=== PATIENT | female | born 1940 | race Caucasian/White ===

== ENCOUNTER 2020-01-08 15:22 | Outpatient (CLI) | payer MEDICARE, SELFPAY ==
--- NOTE | 2020-01-08 15:34 | XR_ITS ---
WS: [id number] SCREENING DEXA SCAN [facility] CLINICAL INFORMATION: POST MENOPAUSAL OSTEOPORSIS COMPARISON: None. FINDINGS: The L1-L4 bone mineral density measures 1.147 g/cm2. This corresponds to a T score score of -0.3 and Z score of 1.2. Left femoral neck bone mineral density measures 0.845 g/cm2. This corresponds to a T score of -1.3 an d Z score of 0.5. Right femoral neck bone mineral density measures 0.820 g/cm2. This corresponds to a T score -1.5of an d Z score of 0.3. Mean femoral neck bone mineral density measures 0.832 g/cm2. This corresponds to a T score of -1.4 an d Z score of 0.4. XR/XR DEXA axial skeleton* [id number] IMPRESSION: Osteopenia in the femoral necks. Patient's FRAX calculated 10 year probability for major osteoporotic fracture is 17.9 % and osteoporotic hip fracture is 5.9% .
== END 2020-01-08 15:23 | disposition home or self-care (01) ==
LOC: RADWPI 15:26
PROVIDERS: Family Provider Family Medicine; PCP Family Medicine; Visit Provider Nurse Practitioner Family
DX: M81.0 Age-related osteoporosis without current pathological fracture (principal); M85.89 Other specified disorders of bone density and structure, multiple sites
CPT/HCPCS: 77080

== ENCOUNTER → 2022-01-14 09:59 | Outpatient (BNVA) | payer MEDICARE, SELFPAY | PROVIDERS: Family Provider Family Medicine; PCP Family Medicine; Visit Provider Internal Medicine Cardiovascular Disease | DX: R00.0 Tachycardia, unspecified (principal); I10 Essential (primary) hypertension; E78.00 Pure hypercholesterolemia, unspecified | CPT/HCPCS: 99213 ==

== ENCOUNTER 2022-02-18 08:30 | Outpatient (CLI) | payer MEDICARE, SELFPAY ==
--- NOTE | 2022-02-18 08:30 | US_ITS ---
WS: [id number] Gallbladder and right upper quadrant ultrasound, 02/18/2022 Clinical Data: vomitting/ r/o gb disease Comparison: None. Findings: The gallbladder shows no sludge or stone. The wall measures 0.2 cm with no pericholecystic fluid. The common bile duct is 0.3 cm and there are no intrahepatic ductal abnormalities. Liver shows no cysts, masses or dilated intrahepatic ducts. The liver shows normal echotexture with n ormal portal venous flow. The pancreas is not obscured by overlying bowel gas and no cyst, pseudocyst, or evidence of pancreati tis is noted. Right kidney measures 9.6 cm and no cyst, masses or hydronephrosis can be seen. The aorta and inferior vena cava show no vascular abnormalities. US/US gall bladder [id number] Impression: Negative gallbladder and right upper quadrant ultrasound.
== END 2022-02-18 08:31 | disposition home or self-care (01) ==
LOC: RAD 08:30
PROVIDERS: PCP Family Medicine; Visit Provider Family Medicine
DX: R10.9 Unspecified abdominal pain (principal)
CPT/HCPCS: 76705

== ENCOUNTER → 2022-04-07 09:05 | Outpatient (BNVA) | payer MEDICARE, SELFPAY | PROVIDERS: PCP Family Medicine; Visit Provider Family Medicine | DX: Z00.00 Encounter for general adult medical examination without abnormal findings (principal); I10 Essential (primary) hypertension; E78.00 Pure hypercholesterolemia, unspecified; E03.9 Hypothyroidism, unspecified | CPT/HCPCS: 80053; 80061; 84443 ==

== ENCOUNTER 2022-04-12 07:45 | Outpatient (CLI) | payer MEDICARE, SELFPAY ==
--- NOTE | 2022-04-12 08:00 | NM_ITS ---
WS: [id number] NUCLEAR MEDICINE HIDA SCAN CLINICAL INFORMATION: Possible gallbladder disease, rule out with HIDA scan TECHNIQUE: Following intravenous administration of 5.1 mCi of technetium 99m mebrofenin, images of th e abdomen were obtained over the course of 60 minutes. Next, gallbladder ejection fraction was determ ined by obtaining preprandial and one-hour postprandial images of the gallbladder following oral leon stion of Ensure. COMPARISON: Ultrasound February 18, 2022 FINDINGS: Normal hepatic uptake at 5 minutes. Normal common bile duct and small bowel activity. Gallbladder is visualized by 10 minutes. No evidence of acute cholecystitis. Decreased gallbladder ejection fraction 29% compatible with gallbladder dysfunction and is suspicious for chronic cholecystitis. NM/NM hepatobiliary w phar* [id number] IMPRESSION: Decreased gallbladder ejection fraction 29% compatible with gallbladder dysfunc tion and suspicious for chronic cholecystitis.
== END 2022-04-12 07:46 | disposition home or self-care (01) ==
LOC: RAD 07:46
PROVIDERS: PCP Family Medicine; Visit Provider Family Medicine
DX: R10.9 Unspecified abdominal pain (principal)
CPT/HCPCS: 78227; A9537

== ENCOUNTER → 2022-05-06 09:39 | Outpatient (BNVA) | payer MEDICARE, SELFPAY | PROVIDERS: PCP Family Medicine; Visit Provider Surgery | DX: K82.8 Other specified diseases of gallbladder (principal) | CPT/HCPCS: 99203 ==

== ENCOUNTER 2022-06-09 08:37 | Day surgery (SDC) | payer MEDICARE, SELFPAY ==
[2022-06-08 14:02] VITALS: BMI 28.3
[2022-06-09] VITALS (9 sets, daily range): BP systolic 101–159; BP diastolic 52–78; PULSE 61–70; RESP 13–18; TEMP 36.6; O2SAT 94–98
[2022-06-09] MEDS: sodium chloride 0.9% 1,000 ML 30 ML IV (09:26)
[2022-06-09] MEDS: diphenhydrAMINE 50 mg/mL SDV 1mL 12.5 MG IVP (09:54)
[2022-06-09] MEDS: ondansetron 2 mg/ML SDV 2 mL 4 MG IVP (09:56)
[2022-06-09] MEDS: scopolamine 1.5 Patch 1 PATCH TRANSDERMA (10:01)
--- NOTE | 2022-06-09 10:14 | P.HP_ITS ---
Providers/Chief Complaint Primary Care Provider: Noble Rodríguez MD Chief Complaint: other specified disease of gallbladder History of Present Illness Digna Escalante is a 82 year old female here for laparoscopic cholecystectomy Medications/Allergies Home Medications Medication Instructions Recorded Confirmed Last Taken Type amlodipine 5 mg tablet 5 mg PO DAILY 12/09/19 06/08/22 06/08/22 History ascorbic acid (vitamin C) 1,000 mg 1,000 mg PO DAILY 12/09/19 06/08/22 06/08/22 History tablet carvedilol 12.5 mg tablet 12.5 mg PO BID 12/09/19 06/08/22 06/09/22 History hydrochlorothiazide 25 mg tablet 12.5 mg PO DAILY 12/09/19 06/08/22 06/08/22 History spironolactone 25 mg tablet 25 mg PO DAILY 12/09/19 06/08/22 06/08/22 History cholecalciferol (vitamin D3) 125 125 mcg PO DAILY 12/18/21 06/08/22 06/08/22 History mcg (5,000 unit) capsule multivitamin 1 tab PO DAILY 12/18/21 06/08/22 06/08/22 History Lactobacillus rhamnosus GG 20 20 cell PO DAILY 01/14/22 06/08/22 06/08/22 History billion cell capsule (Probiotic Digestive Care) tumeric 320 mg PO DAILY 01/14/22 06/08/22 06/08/22 History zyflamend 1 pill PO BID 01/14/22 06/08/22 06/08/22 History levothyroxine 125 mcg tablet 125 mcg PO DAILY #30 tabs 02/25/22 06/08/22 06/09/22 Rx (Euthyrox) Allergies Allergy/AdvReac Type Severity Reaction Status Date / Time lisinopril Allergy Mild Cough Verified 06/08/22 13:52 PFSH Acute PFSH: Medical History HTN (hypertension) Hypercholesterolemia Hypothyroid Osteoporosis Tachycardia Surgical History H/O section Hx of colonoscopy [address] Benitez S/P hysterectomy S/P thyroid surgery Family History Mother Myocardial infarction CAD (coronary artery disease) Diabetes Social History Smoking and tobacco status: never smoked Vitals/I&O/Wt Last Vital Signs Temp 97.8 F 06/09/22 09:02 Pulse 70 06/09/22 09:02 Resp 18 06/09/22 09:02 BP 159/78 06/09/22 09:02 Pulse Ox 94 06/09/22 09:02 O2 Del Method 06/09/22 09:06 Weight last 48 hrs Weight 160 lb Weight 160 lb A&P Assessment and plan (1) Biliary dyskinesia: Plan Laparoscopic cholecystectomy Attestations Medical Necessity Statement*: Home Coding Level of Care Code Acute Maintenance And Engineering Manager for g Fwd Diagnoses Biliary dyskinesia K82.8
--- NOTE | 2022-06-09 10:19 | ANES.PREANE2 ---
Pre-Anesthetic Assessment Height/Weight: Height 1.6 m Weight 72.575 kg Temp Pulse Resp BP Pulse Ox O2 Del Method 97.8 F 70 18 159/78 94 06/09/22 09:02 06/09/22 09:02 06/09/22 09:02 06/09/22 09:02 06/09/22 09:02 06/09/22 09:06 Preop Diagnosis: Biliary Dyskinesia Operation Date: 06/09/22 10:15 Proposed Procedures p Laparoscopic Cholecystectomy 72359,K82.8(Not Applicable) - Brendan Trotter DO Familial anesthetic complications: none Was Beta Brodie taken within 24 hours: Yes Was Clonidine taken within 24 hours: N/A Last intake: Intake Last Liquid Date 06/08/22 Last Liquid Time 21:00 Last Solid Date 06/08/22 Last Solid Time 18:00 Social No alcohol and No tobacco Exam alert, oriented x 3, clear to auscultation bilaterally and regular rate & rhythm Airway Submandibular: within normal limits Cervical ROM: within normal limits Mallampati: Class II Dentition: full CV/HEM Arrythmia and Hypertension Metabolic Thyroid Disease Anesthetic Plan ASA status: 2 Anesthesia: General Other: h/o PONV Medications/Allergies Home Medications Medication Instructions Recorded Confirmed Last Taken Type amlodipine 5 mg tablet 5 mg PO DAILY 12/09/19 06/08/22 06/08/22 History ascorbic acid (vitamin C) 1,000 mg 1,000 mg PO DAILY 12/09/19 06/08/22 06/08/22 History tablet carvedilol 12.5 mg tablet 12.5 mg PO BID 12/09/19 06/08/22 06/09/22 History hydrochlorothiazide 25 mg tablet 12.5 mg PO DAILY 12/09/19 06/08/22 06/08/22 History spironolactone 25 mg tablet 25 mg PO DAILY 12/09/19 06/08/22 06/08/22 History cholecalciferol (vitamin D3) 125 125 mcg PO DAILY 12/18/21 06/08/22 06/08/22 History mcg (5,000 unit) capsule multivitamin 1 tab PO DAILY 12/18/21 06/08/22 06/08/22 History Lactobacillus rhamnosus GG 20 20 cell PO DAILY 01/14/22 06/08/22 06/08/22 History billion cell capsule (Probiotic Digestive Care) tumeric 320 mg PO DAILY 01/14/22 06/08/22 06/08/22 History zyflamend 1 pill PO BID 01/14/22 06/08/22 06/08/22 History levothyroxine 125 mcg tablet 125 mcg PO DAILY #30 tabs 02/25/22 06/08/22 06/09/22 Rx (Euthyrox) Allergies Allergy/AdvReac Type Severity Reaction Status Date / Time lisinopril Allergy Mild Cough Verified 06/08/22 13:52 Current Medications Generic Name Dose Route Start Last Admin Trade Name Freq PRN Reason Stop Dose Admin Diphenhydramine HCl 12.5 mg 06/09/22 08:42 06/09/22 09:54 Diphenhydramine 50 Mg/Ml Sdv 1ml IVP 12.5 mg ONCE PRN Administration PONV Sodium Chloride 1,000 mls @ 30 mls/hr 06/09/22 08:45 06/09/22 09:26 Sodium Chloride 0.9% IV 06/10/22 08:44 30 mls/hr .Q24H MARY Administration Ondansetron HCl 4 mg 06/09/22 08:42 06/09/22 09:56 Ondansetron 2 Mg/Ml Sdv 2 Ml IVP 4 mg ONCE PRN Administration NAUSEA AND VOMITING PFSH Anesthesia Medical History HTN (hypertension) Hypercholesterolemia Hypothyroid Osteoporosis Tachycardia Surgical History H/O section Hx of colonoscopy [address] Benitez S/P hysterectomy S/P thyroid surgery Family History Mother Myocardial infarction CAD (coronary artery disease) Diabetes Social History Smoking and tobacco status: never smoked Data Anesthesia Cardiac Studies: No Data to Display
[2022-06-09] MEDS: ceFAZolin 2,000 MG in sodium chloride 0.9% (plus) 50 ML 100 MG IV (10:50)
--- NOTE | 2022-06-09 11:32 | P.OP_ITS ---
Operative Report Date of procedure: June 09, 2022 Pre-op diagnosis: Preop Diagnosis Biliary Dyskinesia Post-op diagnosis: same Procedure done: Laparoscopic cholecystectomy Specimens removed/disposition: Gallbladder Surgeon: Dr. Brendan Trotter DO Anesthesia: General Estimated blood loss (mL): 5 Complications: None apparent Brief History: This is a pleasant 82-year-old female who was diagnosed with biliary dyskinesia. Laparoscopic cholecystectomy was indicated. The risks and benefits were explained and documented. Procedure: Patient was wheeled into the operative room and placed on the OR table in a supine position. Abdomen was inspected prepped and draped in usual sterile fashion. Time-out was performed and all present were in agreement. A 15 blade scalp was used to make a stab incision in the left upper quadrant and intra- abdominal insufflation was achieved using a Veress needle. After localizing the tissue incisions were made and a 5 millimeter trocar was placed into the umbilicus as well as 2 in the right upper quadrant. A 12 millimeter trocar was placed in the epigastrium. Gallbladder was grasped and elevated. The triangle of Calot was carefully dissected using blunt dissection and electrocautery until the triangle of Calot clearly identified. The cystic duct was clipped proximally and double clipped distally. The duct was then ligated proximally. T he cystic artery was doubly clipped and ligated. The gallbladder was then removed from the liver bed using electrocautery. The gallbladder was removed from the abdomen using an Endo-Catch bag through the epigastric incision. The liver bed was inspected and no bleeding was seen. There was no blood or bile loss. All ports removed. Skin was washed and dried. Incisions were closed with 4-0 Monocryl in a subcuticular interrupted fashion. Skin glue was applied. Patient tolerated the procedure well.
--- NOTE | 2022-06-09 15:09 | ANE.PACU2 ---
Inpatient post-anesthesia follow up: Airway intact: Yes Vital signs: Temperature 97.8 F Pulse Rate 62 Respiratory Rate 18 Blood Pressure 112/68 Pulse Oximetry 96 Oxygen Delivery Me thod Room Air Oxygen Flow Rate 6 Fraction of Inspir ed Oxygen Hydration adequate: Yes Nausea and vomiting: No Pain level: 3 Mental status: Baseline
== END 2022-06-09 12:55 | disposition home or self-care (01) ==
PROVIDERS: PCP Family Medicine; Visit Provider Surgery
PROC: 0FT44ZZ Resection of Gallbladder, Percutaneous Endoscopic Approach (ICD-10-PCS; CPT 47562; principal; 2022-06-09 10:05)
DX: K82.8 Other specified diseases of gallbladder (principal); I10 Essential (primary) hypertension; E78.00 Pure hypercholesterolemia, unspecified; E03.9 Hypothyroidism, unspecified; M81.0 Age-related osteoporosis without current pathological fracture
CPT/HCPCS: 47562; 88304; J0690; J1100; J1200; J2405; J2704; J2710; J3010; J3490; J7030

== ENCOUNTER → 2022-06-22 13:44 | Outpatient (BNVA) | payer MEDICARE, SELFPAY | PROVIDERS: PCP Family Medicine; Visit Provider Surgery | DX: Z98.890 Other specified postprocedural states (principal); Z90.49 Acquired absence of other specified parts of digestive tract | CPT/HCPCS: 99024 ==

== ENCOUNTER → 2023-01-16 10:52 | Outpatient (BNVA) | payer MEDICARE, SELFPAY | PROVIDERS: PCP Family Medicine; Visit Provider Internal Medicine Cardiovascular Disease | DX: R00.0 Tachycardia, unspecified (principal); I10 Essential (primary) hypertension; E78.00 Pure hypercholesterolemia, unspecified | CPT/HCPCS: 99214 ==

== ENCOUNTER → 2023-04-13 08:43 | Outpatient (BNVA) | payer MEDICARE, SELFPAY | PROVIDERS: PCP Family Medicine; Visit Provider Family Medicine | DX: E03.9 Hypothyroidism, unspecified (principal); E78.00 Pure hypercholesterolemia, unspecified; I10 Essential (primary) hypertension | CPT/HCPCS: 80053; 80061; 84443 ==

== ENCOUNTER → 2023-10-12 09:54 | Outpatient (BNVA) | payer MEDICARE, SELFPAY | PROVIDERS: PCP Family Medicine; Visit Provider Family Medicine | DX: E11.9 Type 2 diabetes mellitus without complications (principal); R10.9 Unspecified abdominal pain | CPT/HCPCS: 83690; 84443 ==

== ENCOUNTER → 2024-01-24 14:01 | Outpatient (BNVA) | payer MEDICARE, SELFPAY | PROVIDERS: PCP Family Medicine; Visit Provider Internal Medicine | DX: R00.0 Tachycardia, unspecified (principal); I10 Essential (primary) hypertension; E78.00 Pure hypercholesterolemia, unspecified | CPT/HCPCS: 99213 ==

== ENCOUNTER → 2024-04-11 08:23 | Outpatient (BNVA) | payer MEDICARE, SELFPAY | PROVIDERS: PCP Family Medicine; Visit Provider Family Medicine | DX: I10 Essential (primary) hypertension (principal); E78.00 Pure hypercholesterolemia, unspecified; E03.9 Hypothyroidism, unspecified; Z00.00 Encounter for general adult medical examination without abnormal findings; E11.9 Type 2 diabetes mellitus without complications | CPT/HCPCS: 80053; 80061; 84443; 85025 ==

== ENCOUNTER → 2025-01-22 12:52 | Outpatient (BNVA) | payer MEDICARE, SELFPAY | PROVIDERS: PCP Family Medicine; Visit Provider Internal Medicine | DX: R00.0 Tachycardia, unspecified (principal); I10 Essential (primary) hypertension; E78.00 Pure hypercholesterolemia, unspecified | CPT/HCPCS: 99213 ==

== ENCOUNTER → 2025-04-17 08:48 | Outpatient (BNVA) | payer MEDICARE, SELFPAY | PROVIDERS: PCP Family Medicine; Visit Provider Family Medicine | DX: I10 Essential (primary) hypertension (principal); E78.00 Pure hypercholesterolemia, unspecified; E03.9 Hypothyroidism, unspecified | CPT/HCPCS: 80053; 80061; 84443; 85025 ==

== ENCOUNTER 2025-04-24 13:46 | Outpatient (CLI) | payer MEDICARE, SELFPAY ==
--- NOTE | 2025-04-24 14:00 | XR_ITS ---
WS: [id number] DEXA (DUAL ENERGY X-RAY ABSORPTIOMETRY) Bone mineral density was performed using a [employer] machine. HISTORY: f/u osteopenia COMPARISON: 01/08/2020 Lumbar spine BMD (L1-L4): 1.156 g/cm2 T score: -0.2 Z score: 1.3 Total hip BMD: Left: 0.836 g/cm2. T score: -1.4 Z score: 0.6 Right: 0.782 g/cm2. T score: -1.8 Z score: 0.2 10 year probability of a major osteoporotic fracture is 20.8%. Compared to the prior study from 01/08/2020. Lumbar spine bone mineral density has increased by 0.8%. Bilateral hips bone mineral density has decreased by 2.8%. XR/XR DEXA axial skeleton* [id number] IMPRESSION: OSTEOPENIA based upon the WHO classification for females. Significant decrease in bone mineral density within the hips since the prior y. No significant change in the lumbar spine.
== END 2025-04-24 13:47 | disposition home or self-care (01) ==
LOC: RAD 13:48
PROVIDERS: PCP Family Medicine; Visit Provider Family Medicine
DX: Z13.820 Encounter for screening for osteoporosis (principal); Z00.00 Encounter for general adult medical examination without abnormal findings; M85.80 Other specified disorders of bone density and structure, unspecified site; M85.88 Other specified disorders of bone density and structure, other site
CPT/HCPCS: 77080